=== PATIENT | male | born 1975 | race Caucasian/White ===

== ENCOUNTER 2020-02-14 18:14 | Emergency (ER) | payer OTHER, SELFPAY ==
--- NOTE | ~2020-02-14 | CT_ITS ---
EXAMINATION: CT abdomen pelvis w con DATE: 02/14/2020 19:20 INDICATION: Upper abdominal pain. TECHNIQUE: Computed tomography (CT) of the abdomen and pelvis was performed with 100 mL Omnipaque-350 intravenous contrast. Automated exposure control and iterative reconstruction technique were employe d. The dose-length product was 370.87 mGy-cm. COMPARISON: None FINDINGS: Lung bases are clear. Visualized inferior heart is normal. No pericardial or pleural effusion. Liver, gallbladder, spleen, pancreas, bilateral adrenal glands and kidneys are normal. Bowels including the appendix are normal. Bladder is normal. No free intraperitoneal gas or fluid. No pathologically enla rged abdominal or pelvic lymphadenopathy. Very small fat-containing umbilical hernia. Mild thoracolum bar spondylosis. IMPRESSION: 1. No acute intra-abdominal/pelvic process. Reviewed, dictated and finalized at location A.
[2020-02-14 18:24] VITALS: BP 144/84; PULSE 62; RESP 16; TEMP 36.7; O2SAT 100
[2020-02-14 18:48] LABS: Basophils Absolute Auto 0.1 K/mm3 (0.0-0.1); Basophils Percent Auto 1.1 % (0.2-1.2); Eosinophils Absolute Auto 0.7 K/mm3 (0-0.3); Eosinophils Percent Auto 9.1 % (0-4.4); Hematocrit 43.8 % (42.0-52.0); Hemoglobin 15.2 g/dL (14.0-18.0); Immature Granulocyte Absolute 0.02 K/mm3 (0.00-0.031); Immature Granulocyte Percent A 0.3 % (0-0.5); Lymphocytes Absolute Auto 2.26 K/mm3 (0.9-3.2); Lymphocytes Percent Auto 31.6 % (18.3-44.2); Mean Corpuscular HGB Conc 34.7 g/dl (32-36); Mean Corpuscular Hemoglobin 30.5 pg (26-34); Monocytes Absolute Auto 0.4 K/mm3 (0.1-0.6); Monocytes Percent Auto 5.9 % (2.6-8.5); Neutrophils Absolute Auto 3.7 K/mm3 (1.3-6.7); Platelet Count Result 229 k/mm3 (150-375); Red Blood Count 4.98 M/mm3 (4.6-6.20); Red Cell Distribution Width 11.9 % (11.5-14.5); White Blood Count 7.2 K/mm3 (4.5-10.0)
[2020-02-14 18:50] LABS: Add Urine Microscopic? NO; Appearance Urine Clear (Clear); Bilirubin Urine Negative (Negative); Blood Urine Negative (Negative); Color Urine Straw (Yellow); Glucose Urine UA Negative (Negative); Ketones Urine Negative (Negative); Leukocyte Esterase Ur Negative LEU/UL (Negative); Nitrate Urine Negative (Negative); Protein Urine Negative (Negative); Specific Grav Ur 1.016 (1.001-1.035); Urobilinogen Urine Negative mg/dL (<2.0)
--- NOTE | 2020-02-14 18:59 | ED.ABDPAIN ---
HPI - Abdominal Pain General Chief Complaint: Abdominal Pain Stated Complaint: abd pain Time Seen by Provider: 02/14/20 18:41 Source: patient Mode of arrival: ambulatory Limitations: no limitations History of Present Illness HPI narrative: This is a 44 year old male that presents to the ER for upper abdominal pain x 1 week. Reports intermittent crampy abdominal pain. Associated with nausea. Reports history of GERD for which he takes Omeprazole. Reports he has an appointment with his GI doctor, but it is not until the 1st of next month. Denies fever, vomiting, diarrhea, dysuria or hematuria. Related Data Home Medications Medication Instructions Recorded Confirmed omeprazole magnesium [Prilosec OTC] 20 mg PO DAILY 02/14/20 Allergies Allergy/AdvReac Type Severity Reaction Status Date / Time No Known Allergies Allergy Verified 02/14/20 18:23 Review of Systems Review of Systems: Narrative: CONSTITUTIONAL: Denies fever CARDIOVASCULAR: Denies chest pain RESPIRATORY: Denies dyspnea. GASTROINTESTINAL: Reports abdominal pain, nausea. Denies vomiting, or diarrhea. GENITOURINARY: Denies dysuria or hematuria. All systems reviewed & are unremarkable except as noted in HPI and below PMFSH Past Medical History Medical History (Updated 02/14/20 @ 19:42 by Lori Winters PA-C) History of gastroesophageal reflux (GERD) Surgical History Surgical History (Updated 02/14/20 @ 19:03 by Lori Winters PA-C) History of esophagogastroduodenoscopy (EGD) Social History Social History Gender identity (if verbalized by the patient): Male Exam Narrative: Exam Narrative: GENERAL: Well-appearing, well-nourished, and in no acute distress. HEAD: Normocephalic, atraumatic. EYES: EOMI. CHEST: Clear to auscultation. No respiratory distress. No wheezes rales or rhonchi HEART: Regular rate and rhythm. No murmur heard. Normal peripheral pulses. ABDOMEN: Soft, nondistended, normal active bowel sounds. Mild tenderness to palpation of the epigastrium, without guarding EXTREMITIES: Normal range of motion. No edema. SKIN: Warm, dry, no rash. NEURO: No focal deficits. Alert and oriented x3. PSYCH: Normal mood and affect Course Vital Signs Vital signs: Vital Signs Temperature 98.1 F 02/14/20 18:24 Pulse Rate 62 02/14/20 18:24 Respiratory Rate 16 02/14/20 18:24 Blood Pressure 144/84 H 02/14/20 18:24 Pulse Oximetry 100 02/14/20 18:24 Temperature 98.1 F 02/14/20 18:24 Pulse Rate 51 L 02/14/20 19:30 Respiratory Rate 18 02/14/20 19:30 Blood Pressure 123/88 02/14/20 19:30 Pulse Oximetry 100 02/14/20 19:30 MDM - Abdominal Pain MDM Narrative Medical decision making narrative: Patient presents the emergency department for intermittent crampy upper abdominal pain for the last week. He is afebrile and nontoxic-appearing. Vitals are stable. CBC and metabolic panel are without acute findings. Lipase is not elevated. UA is normal. CT scan of the abdomen pelvis without acute findings. Patient does have history of reflux and duodenal ulcer. Takes Omeprazole at home. Has an appointment with his GI doctor soon. Patient is stable and felt appropriate for further outpatient evaluation. Patient is to follow up with GI. He was given warnings to return to the ER Lab Data Attestation: I reviewed the patient's lab results. Result diagrams: 02/14/20 18:43 02/14/20 18:43 Labs: Lab Results 02/14/20 02/14/20 02/14/20 Range/Units 18:43 18:43 18:43 WBC 7.2 (4.5-10.0) K/mm3 RBC 4.98 (4.6-6.20) M/mm3 Hgb 15.2 (14.0-18.0) g/dL Hct 43.8 (42.0-52.0) % MCV 88.0 (80-100) fl MCH 30.5 (26-34) pg MCHC 34.7 (32-36) g/dl RDW 11.9 (11.5-14.5) % Plt Count 229 (150-375) k/mm3 MPV 9.0 (7.4-10.4) fl Immature Gran % (Auto) 0.3 (0-0.5) % Neut % (Auto) 52.0 (45.5-73.1) % Lymph % (Auto) 31.6 (18.3-44.2) % Lane % (Auto) 5.9 (2.6-8.
[2020-02-14 19:00] LABS: Alanine Aminotransferase 21 U/L (4-50); Albumin Level 4.4 g/dL (3.5-5.1); Alkaline Phosphatase 69 U/L (38-126); Aspartate Amino Transferase 29 U/L (17-59); Bilirubin,Total 0.3 mg/dL (0.2-1.3); Blood Urea Nitrogen 17 mg/dL (9-20); Calcium 9.2 mg/dL (8.4-10.2); Carbon Dioxide 29 mmol/L (22-30); Chloride 103 mmol/L (98-107); Estimated CRCL calculation 84 ml/min; Estimated Glomerular Filt Rate > 60; Glucose 123 mg/dL (75-110); Lipase 82 U/L (23-300); Potassium 3.8 mmol/L (3.4-5.0); Sodium 138 mmol/L (137-145)
[2020-02-14] MEDS: FAMOTIDINE 20 MG/2 ML VIAL IV PUSH (19:26)
[2020-02-14] MEDS: ONDANSETRON INJ 4 MG/2 ML VIAL IV PUSH (19:26)
[2020-02-14 19:30] VITALS: BP 123/88; PULSE 51; RESP 18; O2SAT 100
== END 2020-02-14 20:12 | disposition home or self-care (01) ==
PROVIDERS: Emergency Provider Emergency Medicine
DX: R10.13 Epigastric pain (principal); K21.9 Gastro-esophageal reflux disease without esophagitis
CPT/HCPCS: 36415; 74177; 80053; 81003; 83690; 85025; 96374; 96375; 99284; J0131; J2405; Q9967

== ENCOUNTER 2020-03-18 00:59 | Outpatient (CLI) | payer OTHER, SELFPAY ==
[2020-03-19 18:47] LABS: SARS-CoV-2 RNA PCR Negative
== END 2020-03-18 01:00 | disposition home or self-care (01) ==
LOC: ANHCOVIDDT 00:59
PROVIDERS: Visit Provider Internal Medicine Gastroenterology
DX: Z01.812 Encounter for preprocedural laboratory examination (principal); Z11.59 Encounter for screening for other viral diseases
CPT/HCPCS: 87635; C9803; U0003

== ENCOUNTER 2020-03-21 01:20 | Day surgery (SDC) | payer OTHER, SELFPAY ==
[2020-03-21 07:21] VITALS: BP 116/78; PULSE 54; RESP 18; TEMP 36.7; O2SAT 100
[2020-03-21] MEDS: LACTATED RINGERS 1,000 ML 150 ML IV CONT (07:36)
--- NOTE | 2020-03-21 07:50 | WPDGICN ---
Assessment and Plan Assessment and plan (1) Epigastric abdominal pain: Code(s): R10.13 - Epigastric pain Status: Acute Assessment and Plan: Patient reports pain in the epigastric occasionally right upper quadrant and somewhat in the mid abdomen as well. Etiology unclear but has been severe time prompting him to go to the emergency room. Plan is to continue Bentyl 20 mg p.o. Diederich I b.i.d. as needed for possible irritable bowel syndrome omeprazole started emergency room will be continued until endoscopy can be accomplished. GI Consult Note Consult date/time: 03/21/20 07:50 HPI: Pierre Almodovar is a 44 year old male seen in evaluation at the request of Yasmeen Santana. Patient reports intermittent abdominal pain for the last several months. Pain is described in left upper quadrant of the abdomen. It occurs intermittently. Described as crampy type pain. Somewhat worse after eating. Patient reports there is no relation to bowel movements. Patient went to the emergency room [id number]. He had a he was initially treated with omeprazole with no change in symptoms. He now reports perhaps there has been mild improvement. Patient denies any bleeding or weight loss. 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 His family history is noncontributory reports a sister has irritable bowel syndrome. Review of Systems Review of Systems: All systems reviewed & are unremarkable except as noted in HPI and below PMFSH Past Medical History Medical History Anxiety History of gastroesophageal reflux (GERD) Surgical History Surgical History History of esophagogastroduodenoscopy (EGD) Social History Social History Gender identity (if verbalized by the patient): Male Meds Home Medications and Allergies Home Medications Medication Instructions Recorded Confirmed Type omeprazole magnesium [Prilosec OTC] 20 mg PO DAILY 02/14/20 03/21/20 History Allergies Allergy/AdvReac Type Severity Reaction Status Date / Time No Known Allergies Allergy Verified 03/21/20 07:40 Vital Signs Vital Signs - 24 hr 03/21/20 07:21 Temperature 98.1 F Pulse Rate 54 L Respiratory Rate 18 Blood Pressure 116/78 Pulse Oximetry 100 Exam Narrative: Exam Narrative: Physical exam reveals patient to be alert. Vital signs are stable. HEENT exam unremarkable. Lungs are clear to auscultation and percussion. Heart is without murmur or extra sounds. Abdominal exam bowel sounds are present soft nontender with no hepatosplenomegaly. Digital external rectal exam is normal.
[2020-03-21 08:45] VITALS: BP 110/76; PULSE 68; RESP 22; O2SAT 100
[2020-03-21 08:55] VITALS: BP 120/71; PULSE 61; RESP 18; O2SAT 100
[2020-03-21 09:05] VITALS: BP 123/85; PULSE 57; RESP 18; O2SAT 100
== END 2020-03-21 09:27 | disposition home or self-care (01) ==
PROVIDERS: Visit Provider Internal Medicine Gastroenterology
PROC: 0DJD8ZZ Inspection of Lower Intestinal Tract, Via Natural or Artificial Opening Endoscopic (ICD-10-PCS; CPT 45378; principal; 2020-03-21 08:30)
DX: R10.84 Generalized abdominal pain (principal); D12.5 Benign neoplasm of sigmoid colon; D12.8 Benign neoplasm of rectum; K64.8 Other hemorrhoids; K21.9 Gastro-esophageal reflux disease without esophagitis
CPT/HCPCS: 45385; 87635; 88305; C9803; J2704; J7120; U0003

== ENCOUNTER 2020-12-05 13:31 | Outpatient (CLI) | payer OTHER, SELFPAY | END 2020-12-05 13:32 | disposition home or self-care (01) | LOC: ANHCOVIDVC 13:31 | DX: Z23 Encounter for immunization (principal) | CPT/HCPCS: 0001A; 91300 ==

== ENCOUNTER 2020-12-26 13:31 | Outpatient (CLI) | payer OTHER, SELFPAY | END 2020-12-26 13:32 | disposition home or self-care (01) | LOC: ANHCOVIDVC 13:31 | DX: Z23 Encounter for immunization (principal) | CPT/HCPCS: 0002A; 91300 ==

== ENCOUNTER 2021-12-21 17:00 | Outpatient (CLI) | payer OTHER, SELFPAY ==
--- NOTE | ~2021-12-21 | XR_ITS ---
XR knee LT min 4V DATE: 12/21/2021 17:40 INDICATION: Generalized knee pain, peripatellar knee pain. No injury. TECHNIQUE: [place], AP, PA and lateral views COMPARISON: None FINDINGS: There is mild periarticular spurring of the patella consistent with mild patellofemoral ost eoarthritis. The joint spaces are well preserved. No fracture or dislocation or joint effusion. No periosteal reaction or bone destruction. No radiopaq ue intra-articular loose body or chondrocalcinosis. IMPRESSION: Mild patellofemoral osteoarthritis Reviewed, dictated and finalized at location A.
--- NOTE | ~2021-12-21 | XR_ITS ---
XR knee RT min 4V DATE: 12/21/2021 17:40 INDICATION: Generalized knee pain, peripatellar knee pain. TECHNIQUE: [place], AP, PA and lateral views COMPARISON: None FINDINGS: Small suprapatellar knee joint effusion is suggested. No fracture or dislocation, periosteal reaction or bone destruction. There is slight periarticular sp urring of the patella. Joint spaces appear relatively well preserved. No radiopaque intra-articular l oose body or chondrocalcinosis. IMPRESSION: Small suprapatellar knee joint effusion is suggested Minimal osteoarthritis at the patellofemoral joint Reviewed, dictated and finalized at location A.
--- NOTE | ~2021-12-21 | XR_ITS ---
XR lumbar spine 2-3V DATE: 12/21/2021 17:38 INDICATION: Chronic mid low back pain TECHNIQUE: AP, lateral, coned lateral lumbosacral views COMPARISON: None FINDINGS: Normal alignment of the lumbar vertebrae. No fracture or bone destruction. The lumbar pedic les are intact. Mild degenerative disc disease and minimal retrolisthesis at L2-3. There is moderate degenerative disc disease and minimal retrolisthesis at L3-4. Moderately severe degenerative disc disease and minimal retrolisthesis at L4-5. The sacroiliac joints are intact. IMPRESSION: Multilevel degenerative disc disease and minimal retrolisthesis Reviewed, dictated and finalized at location A.
== END 2021-12-21 17:01 | disposition home or self-care (01) ==
PROVIDERS: Visit Provider Internal Medicine Geriatric Medicine
DX: M17.0 Bilateral primary osteoarthritis of knee (principal); M25.461 Effusion, right knee; M51.36 Other intervertebral disc degeneration, lumbar region
CPT/HCPCS: 72100; 73564

== ENCOUNTER 2023-02-22 12:44 | Emergency (ER) | payer OTHER, SELFPAY ==
--- NOTE | ~2023-02-22 | XR_ITS ---
EXAMINATION: XR knee LT min 4V DATE: 02/22/2023 15:25 INDICATION: Laceration to the distal anterolateral left thigh TECHNIQUE: Anteroposterior, 2 oblique and crosstable lateral views of the left knee were obtained COMPARISON: 12/21/2021 FINDINGS: Alignment is normal. No fracture. Joint spaces appear normal on nonweightbearing imaging. Tiny escobar lar marginal osteophytes. Persistent small amount of synovitis versus small joint effusion at the sup rapatellar pouch on the lateral projection. Decrease in now mild prepatellar soft tissue swelling. N o radiopaque foreign bodies. IMPRESSION: 1. Unchanged small left knee joint effusion versus synovitis. Improvement in now mild prepatellar sof t tissue swelling. Reviewed, dictated and finalized at location A. IMPRESSION: 1. Unchanged small left knee joint effusion versus synovitis. Improvement in no w mild prepatellar soft tissue swelling.
[2023-02-22 13:01] VITALS: BP 145/73; PULSE 76; RESP 17; TEMP 36.2; O2SAT 100
--- NOTE | 2023-02-22 15:14 | ED.WOUNDLAC ---
HPI - Wound/Laceration General Chief Complaint: Wound/Laceration Stated Complaint: L thigh lac Time Seen by Provider: 02/22/23 13:59 Source: patient Mode of arrival: ambulatory Limitations: no limitations History of Present Illness HPI narrative: Patient is a 47-year-old male who presents to the ED with report of a laceration to his distal left thigh. Patient reports he was using a battery-operated metal sander and finisher to cut a piece of metal. He was kneeling down when doing so and the knife grinder slipped, sustaining a laceration to his distal left thigh, just above his knee. No active bleeding by the time of my evaluation. Patient has been ambulatory, full range of motion of his left knee flexion and extension. Patient's tetanus status unknown. No other injuries. Related Data Home Medications Medication Instructions Recorded Confirmed No Home Medications 02/22/23 02/22/23 Allergies Allergy/AdvReac Type Severity Reaction Status Date / Time No Known Allergies Allergy Verified 02/22/23 13:54 Review of Systems Review of Systems: CONSTITUTIONAL: Denies fever, chills, or sweats. SKIN: See HPI. MUSCULOSKELETAL: Denies back pain, joint pain, or myalgia. NEUROLOGIC: Denies tingling, numbness, or weakness. All systems reviewed & are unremarkable except as noted in HPI and below PMFSH Past Medical History Medical History Anxiety History of gastroesophageal reflux (GERD) Surgical History Surgical History History of esophagogastroduodenoscopy (EGD) Social History Social History Gender identity (if verbalized by the patient): Male Exam Narrative: GENERAL: Well appearing, well-nourished, non-toxic, in no acute distress. HEAD: Normocephalic, atraumatic. NECK: Supple. No adenopathy, no masses. RESPIRATORY: Airway patent, respirations nonlabored. CARDIOVASCULAR: Regular rate and rhythm without murmurs, rubs, or gallops. Pedal pulses 2+ and equal bilaterally. MUSCULOSKELETAL: Moves all extremities. Strength/ROM intact without gross deformities. Full range of motion of left knee flexion and extension. Approximately 8 cm linear laceration to distal medial left thigh, a few fingerbreadths above the knee joint space. Adipose tissue exposed, no deeper tendon or muscle involvement. No tenderness surrounding laceration or throughout knee joint. No active bleeding. SKIN: Warm, dry, normal color. No rashes. NEURO: A&O X3. Speech clear. Cranial nerves II-XII grossly intact. Steady gait. No ataxic movements. PSYCHIATRIC: Appropriate mood and affect. Normal interaction. Course Vital Signs Vital signs: Vital Signs Temperature 97.2 F L 02/22/23 13:01 Pulse Rate 76 02/22/23 13:01 Respiratory Rate 17 02/22/23 13:01 Blood Pressure 145/73 H 02/22/23 13:01 Pulse Oximetry 100 02/22/23 13:01 Oxygen Delivery Room Air 02/22/23 13:01 Temperature 97.2 F L 02/22/23 13:01 Pulse Rate 76 02/22/23 13:01 Respiratory Rate 17 02/22/23 13:01 Blood Pressure 145/73 H 02/22/23 13:01 Pulse Oximetry 100 02/22/23 13:01 Oxygen Delivery Room Air 02/22/23 13:01 Procedures Laceration Laceration 1: Date: 02/22/23 Time: 16:00 Site: lower extremity (distal thigh) Side (If applicable): left Size (cm): 8 Description: linear Depth: simple, single layer Local Anesthetic: lidocaine 1% Amount of anesthesia used (mL): 5 Pre-repair: wound explored and irrigated ====== Skin Level ====== Skin layer closed with: nylon Size (cm): 4-0 Number of sutures: 6 Technique: simple, interrupted ====== Subcutaneous Layer ====== ====== Muscle Layer ====== ====== Tendon Layer ====== MDM - Wound/Laceration MDM Narrative Medical d
--- NOTE | 2023-02-22 15:20 | PC.NURSE ---
Pt taken to Xray
[2023-02-22] MEDS: TETANUS,DIPHTHERIA,AC PERTUSSIS ADULT (0.5 ML) BOOSTRIX IM (15:41)
[2023-02-22 16:40] VITALS: BP 121/78; PULSE 77; RESP 18; O2SAT 99
== END 2023-02-22 16:40 | disposition home or self-care (01) ==
PROVIDERS: Emergency Provider Physician Assistant
DX: S71.112A Laceration without foreign body, left thigh, initial encounter (principal); Z23 Encounter for immunization; W29.8XXA Contact with other powered hand tools and household machinery, initial encounter
CPT/HCPCS: 12002; 73564; 90471; 90715; 99283